=== PATIENT | female | born 1935 | race Caucasian/White ===

== ENCOUNTER → 2017-08-01 | Outpatient (CLI) | payer OTHER | LOC: FIMAGING 08:30 | PROVIDERS: ATTEND Internal Medicine Gastroenterology | DX: K21.9 Gastro-esophageal reflux disease without esophagitis (principal) | CPT/HCPCS: 78264; A9541 ==

== ENCOUNTER → 2018-03-31 | Outpatient (CLI) | payer OTHER | LOC: BMCIMAGING 07:35 | PROVIDERS: ATTEND Physician Assistant | DX: R68.81 Early satiety (principal); R14.0 Abdominal distension (gaseous); N28.1 Cyst of kidney, acquired ==

== ENCOUNTER → 2018-07-29 | Outpatient (CLI) | payer BC, OTHER | LOC: FIMAGING 19:14 | PROVIDERS: ATTEND Psychiatry & Neurology Neurology | DX: R26.9 Unspecified abnormalities of gait and mobility (principal) | CPT/HCPCS: 70551-PN ==

== ENCOUNTER 2018-08-16 13:48 | Observation (INO) | payer OTHER ==
--- NOTE | 2018-08-16 13:52 | EDPHY ---
H & P Time Seen by Provider: 08/16/18 13:51 HPI/ROS: CHIEF COMPLAINT: Feeling faint HISTORY OF PRESENT ILLNESS: Arrives by EMS for feeling lightheaded like she is going to pass out and unable to walk. She had her 1st episode on Friday 2 days ago sitting at home, had 30 min of feeling dizzy and lightheaded like she was going to pass out, remain seated and it went away. Was seen at urgent care yesterday. Today she was at home at 1:00 p.m., started feeling dizzy and lightheaded like she was going to pass out just after talking to 1 of her sons who lives in [place]. Did not have associated chest pain but a little bit of trouble "catching my breath" and no racing heart rate palpitations were skipping beats. Did not actually have syncope. No headache or visual symptoms. REVIEW OF SYSTEMS: Eye: no change in vision ENT: no sore throat Cardiac: HPI Pulmonary: HPI Abdomen: no vomiting, diarrhea, abdominal pain Musculoskeletal: Has some chronic left lower leg edema wearing a compression stocking, unchanged Skin: no rash Neuro: no headache Constitutional: no fever : no urinary symptoms A comprehensive 10 point review of systems is otherwise negative aside from elements mentioned in the history of present illness. PAST MEDICAL HISTORY: Negative, brain MRI dated 07/29/2018 shows microvascular gliosis, atrial fibrillation not on medication. 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 Social history: Lives independently General Appearance: Alert and conversant, cooperative. Eyes: No scleral icterus. ENT, Mouth: Normal mucous membranes. Respiratory: Normal respiratory effort, breath sounds equal, lungs are clear to auscultation. Cardiovascular: Regular rate and rhythm. Frequent extrasystoles. No murmur. Gastrointestinal: Abdomen is soft and non tender. Neurological: Alert, face symmetric, normal motor and sensory in extremities. Fluent speech, can lift each leg off the bed independently and has normal finger -to-nose bilaterally without pronator drift. Extraocular motion intact without nystagmus. Skin: Warm and dry, no rashes. Musculoskeletal: No peripheral edema. Psychiatric: Not agitated. Emergency Department course/MDM: Patient does not have symptoms suggestive of vertigo, more likely to be near syncope or orthostasis. Also differential includes but not limited to atrial fibrillation, malignant ventricular dysrhythmia, anemia, dehydration. 12-lead EKG interpreted by me; official reading is in computer system. My interpretation is sinus rhythm with supraventricular bigeminy and PACs. Plan for CBC chemistry troponin D-dimer chest x-ray, admission for monitoring. 1422: Troponin 0.11, discussed with Dr. Grant, admit for ACS, oral aspirin. Constitutional: Initial Vital Signs Temperature (C) 36.7 C 08/16/18 13:56 Heart Rate 83 08/16/18 13:56 Respiratory Rate 18 08/16/18 13:56 Blood Pressure 156/82 H 08/16/18 13:56 O2 Sat (%) 96 08/16/18 13:56 O2 Delivery Mode Room Air Allergies/Adverse Reactions: bacitracin [From Neosporin ([id number]-dsc-asptz)] Allergy (Verified 08/16/18 13:55) codeine Allergy (Verified 08/16/18 13:55) neomycin [From Neosporin (eyk-fir-lvixy)] Allergy (Verified 08/16/18 13:55) polymyxin B [From Neosporin (wff-yjc-qbeur)] Allergy (Verified 08/16/18 13:55) Home Medications: Medication Instructions Recorded Carboxymethylcellulose 1% [Refresh 1 drop EACHEYE Q4H PRN 08/16/18 Celluvisc (*)] Herbals/Supplements -Info Only 1 ea PO DAILY 08/16/18 Medical Decision Making - Diagnostics EKG Interpretation: 12-lead EKG interpreted by me; official reading is in computer system. My interpretation is sinus rhythm with supraventricular bigeminy, no acute ST changes, rate 79. Imaging Results: Imaging Impressions Chest X-Ray 08/16/18 14:03 Impression: 1. No active cardiopulmonary disease seen. 2. Hyperexpanded lungs suggestive of underlying COPD 3. Scoliosis Imaging: I viewed and interpreted images myself Differential Diagnosis: Differential diagnosis considered for near syncope including but not limited to ACS, vasovagal syncope, arrhythmia, dehydration, and blood loss. Consult/Admit Bed Type: [place] to consult 1513 - Data Points Laboratory Results: Laboratory Results 08/16/18 14:01 08/16/18 14:01 03/08/16/18 08/16/18 14:01 14:01 14:01 WBC 11.05 10^3/uL H 10^3/uL (3.80-9.50) RBC 5.04 10^6/uL 10^6/uL (4.18-5.33) Hgb 14.2 g/dL g/dL (12.6-16.3) Hct 42.9 % % (38.0-47.0) MCV 85.1 fL fL (81.5-99.8) MCH 28.2 pg pg (27.9-34.1) MCHC 33.1 g/dL g/dL (32.4-36.7) RDW 14.2 % % (11.5-15.2) Plt Count 277 10^3/uL 10^3/uL (150-400) MPV 10.5 fL fL (8.7-11.7) Neut % (Auto) 56.6 % % (39.3-74.2) Lymph % (Auto) 32.6 % % (15.0-45.0) [place] % (Auto) 8.8 % % (4.5-13.0) Eos % (Auto) 1.2 % % (0.6-7.6) Baso % (Auto) 0.5 % % (0.3-1.7) Nucleat RBC Rel Count 0.0 % % (0.0-0.2) Absolute Neuts (auto) 6.27 10^3/uL 10^3/uL (1.70-6.50) Absolute Lymphs (auto) 3.60 10^3/uL H 10^3/uL (1.00-3.00) Absolute Monos (auto) 0.97 10^3/uL H 10^3/uL (0.30-0.80) Absolute Eos (auto) 0.13 10^3/uL 10^3/uL (0.03-0.40) Absolute Basos (auto) 0.05 10^3/uL 10^3/uL (0.02-0.10) Absolute Nucleated RBC 0.00 10^3/uL 10^3/uL (0-0.01) Immature Gran % 0.3 % % (0.0-1.1) Immature Gran # 0.03 10^3/uL 10^3/uL (0.00-0.10) Sodium 136 mEq/L mEq/L (135-145) Potassium 4.0 mEq/L mEq/L (3.5-5.2) Chloride 101 mEq/L mEq/L (97-110) Carbon Dioxide 22 mEq/l mEq/l (22-31) Anion Gap 13 mEq/L mEq/L (6-14) BUN 18 mg/dL mg/dL (7-23) Creatinine 0.8 mg/dL mg/dL (0.6-1.0) Estimated GFR > 60 Glucose 103 mg/dL H mg/dL (70-100) Hemoglobin A1c Pending Estim Average Glucose Pending Calcium 10.1 mg/dL mg/dL (8.5-10.4) POC Troponin I 08/16/18 13:58 WBC RBC Hgb Hct MCV MCH MCHC RDW Plt Count MPV Neut % (Auto) Lymph % (Auto) [place] % (Auto) Eos % (Auto) Baso % (Auto) Nucleat RBC Rel Count Absolute Neuts (auto) Absolute Lymphs (auto) Absolute Monos (auto) Absolute Eos (auto) Absolute Basos (auto) Absolute Nucleated RBC Immature Gran % Immature Gran # Sodium Potassium Chloride Carbon Dioxide Anion Gap BUN Creatinine Estimated GFR Glucose Hemoglobin A1c Estim Average Glucose Calcium POC Troponin I 0.11 ng/mL H ng/mL (0.00-0.08) Medications Given: Discontinued Medications Aspirin (Aspirin) 324 mg PO EDNOW ONE Stop: 08/16/18 14:22 Last Admin: 08/16/18 14:27 Dose: 324 mg Point of Care Test Results: Chemistry 08/16/18 13:58 POC Troponin I 0.11 ng/mL H ng/mL (0.00-0.08) Departure - Departure Disposition: [facility] Inpatient Acute Clinical Impression: Near syncope, ACS (acute coronary syndrome) Condition: Good
[2018-08-16 14:07] LABS: PLATELET COUNT 277 10^3/uL (150-400)
[2018-08-16] MEDS ORDERED: ASPIRIN 81 MG CHEWABLE TAB PO ONE (14:21)
[2018-08-16] MEDS ORDERED: ONDANSETRON DISINTEGRATING 4 MG TAB PO PRN (14:58)
[2018-08-16] MEDS ORDERED: ONDANSETRON 4 MG/2 ML VIAL IVP PRN (14:58)
[2018-08-16] MEDS ORDERED: NITROGLYCERIN 0.4 MG BTL SL PRN (14:58)
[2018-08-16] MEDS ORDERED: ACETAMINOPHEN 325 MG TAB PO PRN (14:58)
[2018-08-16] MEDS ORDERED: CARBOXYMETHYLCELLULOSE 1% 0.4 ML DROPERETTE EACHEYE PRN (15:00)
--- NOTE | 2018-08-16 16:37 | CPEKG ---
Test Reason : OPEN Blood Pressure : / mmHG Vent. Rate : 079 BPM Atrial Rate : 142 BPM P-R Int : 167 ms QRS Dur : 077 ms QT Int : 416 ms P-R-T Axes : 063 051 065 degrees QTc Int : 477 ms Sinus rhythm Supraventricular bigeminy Probable left atrial enlargement Confirmed by Jeremy Londono ([id number]) on 08/16/2018 4:37:39 PM Referred By: Jeremy Londono Confirmed By:Jeremy Londono
--- NOTE | 2018-08-16 17:55 | PDGENHP ---
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 She notes that she has had some of these sxs in the recent past as well, and was diagnosed initially with ocular migraine for which she recently underwent a brain MRI and is seeing a neurologist in [place]. On Friday she had an episode of dizziness that lasted about 30 minutes, on Friday she was seen at urgent care for that, and they told her it was not a stroke or a heart attack and that she should f/u with her usual doctors. Today the sxs came back but this time they were so severe that she was unable to stand , and when she did try to stand she felt as if she would faint, and ultimately called 911 to come to the ER. This episode was associated with SOB as well, which she is not sure she had with the other episodes. On none of these episodes did she experience chest pain or palpitations. She has never had any heart issues that she knows of. She has not had swelling or pain in her legs. History Information - Allergies/Home Medication List Allergies/Adverse Reactions: bacitracin [From Neosporin (jbn-vdh-avyzm)] Allergy (Verified 08/16/18 13:55) codeine Allergy (Verified 08/16/18 13:55) neomycin [From Neosporin (olt-ald-nclhm)] Allergy (Verified 08/16/18 13:55) polymyxin B [From Neosporin (svs-uly-rkrot)] Allergy (Verified 08/16/18 13:55) Home Medications: Carboxymethylcellulose 1% [Refresh Celluvisc (*)] 1 drop EACHEYE Q4H PRN [Last Taken 08/15/18] Herbals/Supplements -Info Only 1 ea PO DAILY 08/16/18 [Last Taken 08/16/18] I have personally reviewed and updated: family history, medical history, social history, surgical history - Past Medical History cancer (DCIS), migraines - Surgical History Reports: cancer surgery (lumpectomy) Additional surgical history: knee replacement - Family History Positive for: CAD (dad with multiple MIs, at 81. Sister with AZ) Additional family history: Mother with RA. Sister with NHL, a fib, CVA - Social History Smoking Status: Never smoked Alcohol Use: Rarely Drug Use: None Additional social history: lives independently with a friend, prior to the last month was walking 1 mile every day Review of Systems Review of Systems: ROS: 10pt was reviewed & negative except for what was stated in HPI & below Physical Exam Physical Exam: Temp Pulse Resp BP Pulse Ox 36.6 C 75 18 145/75 H 95 08/16/18 15:07 08/16/18 15:07 08/16/18 15:07 08/16/18 15:07 08/16/18 15:07 Constitutional: no apparent distress, appears nourished Eyes: PERRL, anicteric sclera Ears, Nose, Mouth, Throat: moist mucous membranes, hearing normal Cardiovascular: regular rate and rhythym, no murmur, rub, or gallop, No edema Respiratory: no respiratory distress, no rales or rhonchi, clear to auscultation Gastrointestinal: normoactive bowel sounds, soft, non-tender abdomen, no palpable masses Genitourinary: no bladder tenderness Skin: warm, normal color Musculoskeletal: full muscle strength Neurologic: AAOx3 Psychiatric: interacting appropriately, not anxious, not encephalopathic Lab Data & Imaging Review 08/16/18 14:01 08/16/18 14:01 WBC 11.05 10^3/uL (3.80-9.50) H 08/16/18 14:01 RBC 5.04 10^6/uL (4.18-5.33) 08/16/18 14:01 Hgb 14.2 g/dL (12.6-16.3) 08/16/18 14:01 Hct 42.9 % (38.0-47.0) 08/16/18 14:01 MCV 85.1 fL (81.5-99.8) 08/16/18 14:01 MCH 28.2 pg (27.9-34.1) 08/16/18 14:01 MCHC 33.1 g/dL (32.4-36.7) 08/16/18 14:01 RDW 14.2 % (11.5-15.2) 08/16/18 14:01 Plt Count 277 10^3/uL (150-400) 08/16/18 14:01 MPV 10.5 fL (8.7-11.7) 08/16/18 14:01 Neut % (Auto) 56.6 % (39.3-74.2) 08/16/18 14:01 Lymph % (Auto) 32.6 % (15.0-45.0) 08/16/18 14:01 [place] % (Auto) 8.8 % (4.5-13.0) 08/16/18 14:01 Eos % (Auto) 1.2 % (0.6-7.6) 08/16/18 14:01 Baso % (Auto) 0.5 % (0.3-1.7) 08/16/18 14:01 Nucleat RBC Rel Count 0.0 % (0.0-0.2) 08/16/18 14:01 Absolute Neuts (auto) 6.27 10^3/uL (1.70-6.50) 08/16/18 14:01 Absolute Lymphs (auto) 3.60 10^3/uL (1.00-3.00) H 08/16/18 14:01 Absolute Monos (auto) 0.97 10^3/uL (0.30-0.80) H 08/16/18 14:01 Absolute Eos (auto) 0.13 10^3/uL (0.03-0.40) 08/16/18 14:01 Absolute Basos (auto) 0.05 10^3/uL (0.02-0.10) 08/16/18 14:01 Absolute Nucleated RBC 0.00 10^3/uL (0-0.01) 08/16/18 14:01 Immature Gran % 0.3 % (0.0-1.1) 08/16/18 14:01 Immature Gran # 0.03 10^3/uL (0.00-0.10) 08/16/18 14:01 Sodium 136 mEq/L (135-145) 08/16/18 14:01 Potassium 4.0 mEq/L (3.5-5.2) 08/16/18 14:01 Chloride 101 mEq/L (97-110) 08/16/18 14:01 Carbon Dioxide 22 mEq/l (22-31) 08/16/18 14:01 Anion Gap 13 mEq/L (6-14) 08/16/18 14:01 BUN 18 mg/dL (7-23) 08/16/18 14:01 Creatinine 0.8 mg/dL (0.6-1.0) 08/16/18 14:01 Estimated GFR > 60 08/16/18 14:01 Glucose 103 mg/dL (70-100) H 08/16/18 14:01 Calcium 10.1 mg/dL (8.5-10.4) 08/16/18 14:01 POC Troponin I 0.11 ng/mL (0.00-0.08) H 08/16/18 13:58 Visualized and Interpreted Chest x-ray results: Yes Chest X-Ray results: no infiltrate, other (hyperexpansion, ? copd) Visualized and Interpreted EKG results: Yes EKG Interpretation: Positive for: normal sinsus rhythm EKG additional interpertation: supraventricular bigeminy Assessment & Plan Assessment: ACS (acute coronary syndrome) (Acute) Near syncope (Acute) 82 yo F pw near syncope and sob found to have elevated troponin consistent with ACS # ACS: with atypical sxs but troponin elevation to 0.11 on arrival (this was a POC lab however, formal lab pending), ecg not clearly ischemic. Patient with minimal RF for CAD other than age and family hx. Plan to monitor on telemetry, serial troponin and serial ecg. Lipid panel and A1c ordered for further risk stratification. Cardiology consulted and presumably will evaluate patient in am. Will keep NPO after MN. # near syncope: in setting of above, will get echo in am for further evaluation for valvular disease etc # migraine: patient was previously on verapamil for this, followed by neurology , has ocular migraines only without headache # observation status Patient new to my care. Old records reviewed and summarized as above. Care plan reviewed with ER doctor and further hx obtained from patients friend present at bedside.
--- NOTE | 2018-08-16 18:13 | ASMTCMCOM ---
CM Note CM Note Notes: Pt presented to the ED from home for SOB, dizziness and near syncope over the last couple of days; pt seen at Urgent Care yesterday. Pt admitted for possible ACS and further cardiac monitoring/workup. Cardiology to consult; ECHO, serial troponins and EKGs ordered. DC needs TBD but anticipate pt to DC home Ind. Pt lives independently with a friend. CM to follow. Date Signed: 08/16/2018 06:12 PM Electronically Signed By:Anastasia Brink RN
[2018-08-17] MEDS ORDERED: ASPIRIN 325 MG TAB PO SCH (09:00)
--- NOTE | 2018-08-17 11:43 | GCON ---
[f rep st] CONSULTATION CARDIOLOGY CONSULTATION DATE OF CONSULTATION: 08/17/2018 INDICATION FOR CONSULTATION: Complaints of near-syncope and mildly elevated point of care troponin. HISTORY OF PRESENT ILLNESS: The patient is a pleasant 82-year-old, healthy, fit appearing woman, who has been experiencing episodes of intermittent unsteadiness that began in mid May 2018. She sta aguilar these episodes felt similar to how she felt in 2004 when she was formally diagnosed with ocular m igraines that resolved after verapamil therapy. She states she has been off verapamil for at least t he last 5 years. She states she was in her usual state of health until mid May when she began to develop these epi sodes of feeling "unbalanced." These episodes have intensified, and she states that she currently lozano s a chronic underlying degree of feeling unbalanced all the time. She has been seen by a neurologist in [place], Dr. Reaves. She did undergo an MRI of the brain earlier this year with no evidence o f mass or hemorrhagic or ischemic stroke. There were nonspecific white matter changes noted, as well as mild atrophy. She is scheduled to follow up with Neurology later this week. Over this past weekend, she had an episode on Friday night where she felt "out of control." This epi sode occurred while sitting while at her computer. She denied any associated palpitations, rapid hea rtbeat, chest pain, chest pressure, shortness of breath, nausea, vomiting, or diaphoresis. No associ ated syncope. She states these symptoms gradually resolved within 20 minutes on their own. She did take herself to urgent care. Her workup at urgent care was unremarkable, and she was discharged home . The patient states that yesterday she was sitting at her dining room table when she had an acute onse t of feeling near syncopal. She denied any change in position with the onset of these symptoms. She was sitting at the time of which they occurred. No associated palpitations, rapid heartbeat, chest pain, chest pressure, nausea, vomiting, or diaphoresis. She states she got up from the table and fel t worse. She called 9-1-1. She felt weak and "awful." Workup in the emergency department demonstra anselmo an ECG demonstrating sinus rhythm with isolated premature atrial contractions. Chest x-ray demon strated hyperinflated lungs with no acute cardiopulmonary abnormalities, and a mildly elevated point of care troponin of 0.11. Of note, repeat serum troponins were within normal limits at 0.022 and 0.0 17. Currently on the time of my exam, she is resting comfortably. She is in no acute distress. She stat es she has returned to her baseline level of mild sensation of being unbalanced. The patient states that prior to the onset of these events, she was exercising regularly, she would w alk daily. She was at a dance in mid May 2018 where she danced constantly for 3 hours. She also participates in Pilates and yoga. She has no history of diabetes, hypertension, or hyperlipidemia. She is a lifelong nonsmoker. She has no family history of premature coronary artery disease. Her f ather did from myocardial infarction at the age of 81. Sister had a myocardial infarction. She has another sister with non-Hodgkin's lymphoma and atrial fibrillation. PAST MEDICAL HISTORY: Notable for ocular migraines, DCIS status post lumpectomy, and knee replacemen t. MEDICATIONS ON ADMISSION: Include qody-hvs-shaofcn Refresh eye drops. ALLERGIES: Bacitracin, neomycin, and polymyxin B. SOCIAL HISTORY: She has been twice. She has 4 adopted children and 8 grandchildren. She l chalo with a friend whom she has known for the last 16 years. She is lifelong nonsmoker. She rarely drinks alcohol. Her last alcoholic beverage was in April 2018. She exercises regularly. PHYSICAL EXAMINATION: VITAL SIGNS: Blood pressure 140/60, heart rate 70, oxygen saturation 94% on r oom air, respiratory rate of 12. She is awake, alert, oriented, appropriate. No apparent distress. There is no evidence of JVP or carotid bruits. LUNGS: Clear to auscultation bilaterally. CARDIAC: S1, S2. Regular rate and rhythm. No murmurs, rubs, or gallops. ABDOMEN: Soft, nontender, nondis tended. There is no pulsatile mass or abdominal bruit. EXTREMITIES: Distal pulses are intact. She has no evidence of cyanosis, clubbing, or edema. DATA: Lab work demonstrates hemoglobin of 14.2, hematocrit 42.9, platelet count 227. Sodium of 136, potassium of 4.0, BUN of 18, creatinine 0.8, glucose 103. Serum troponin of 0.022, trending down to 0.017. Total cholesterol 189, triglyceride 61, HDL 62, LDL 115. Chest x-ray demonstrates no acute cardiopulmonary disease with hyperinflated lungs. ECG demonstrates sinus rhythm with no evidence of acute infarction or ischemia. Isolated PVCs. IMPRESSION: Near syncope. SUMMARY: The patient is a pleasant 82-year-old female with symptoms of near syncope, that over this past weekend in the setting of progressive sensation of feeling "unbalanced" for the last 2-1/2 month s. She is being followed by a neurologist, Dr. Page in [place]. She had also been seen by [facility] Th[facility] who told her symptoms were not due to positional vertigo. I do not think that she requires further cardiac risk stratification. She has no significant risk fa ctors for heart disease. Her ECG is unremarkable for ischemic changes, and her serum troponins are b oth within normal range. She is also physically active with no cardiac symptoms. Would recommend further cardiac workup with complete 2D echocardiogram. Note, telemetry monitoring h as demonstrated normal sinus rhythm with isolated premature atrial contractions. If echocardiogram a nd continue telemetry monitoring are unremarkable, would recommend outpatient 2 week ZIO patch monito r and followup. PLAN: 1. Discontinue n.p.o. Order. 2. No plan for cardiac risk stratification at this time. 3. Complete 2D echocardiogram. 4. Bilateral carotid Doppler. 5. Continue telemetry monitoring. 6. If above workup is unremarkable, recommend 2 week ZIO patch monitor and cardiology followup. /[id number]/MODL
[2018-08-17 12:02] VITALS: BP 115/50
--- NOTE | 2018-08-17 13:43 | ECHO ---
[email or web address] [address] [address] Main: [phone] Echocardiography Examination Transthoracic Name: MIR MOORE MR#: [id number] Study Date: 08/17/2018 Study Time: 11:19 AM Date of : 1935 Age: 82 year(s) Height: 165.1 cm (65 in.) Weight: 59.42 kg (131 lb.) BSA: 1.65 m2 Gender: Female Examination: Echo Contrast: Image Quality: Adequate Rhythm: Heart Rate: BP: / Indication: near syncope, elevated troponin, dizziness Procedure Staff Referring Physician: Fuse Cup Expander: Hillary Medel [facility] Reading Physician: Roberto Roque MD Requesting Provider: Indication: near syncope, elevated troponin, dizziness Measurements Chambers AV/MV Label Value Normal Value Label Value Normal Value IVSd, 2D 1.2 cm (0.6cm - 1.1cm) AV PGmax 14 mmHg LVDd, 2D 2.9 cm (3.9cm - 5.3cm) AV Vmax 1.87 m/s LVDs, 2D 1.8 cm (2.1cm - 4cm) GOPI (continuity eq. 3 cm2 LVEF, 2D 71 % (54% - 74%) Vmax) LVEF, BP 67 % (55% - 70%) MV A Vmax 0.96 m/s LVOT PGmax 13 mmHg MV DT 239 ms LVOT Vmax 1.77 m/s (0.7m/s - 1.1m/s) MV E' lateral 0.06 m/s LVOTd 2 cm (1.8cm - 2cm) MV E' mean 0.06 m/s LVPWd, 2D 1.1 cm MV E' septal 0.05 m/s RVDd, 2D 3 cm (1.9cm - 3.8cm) MV E Vmax 0.67 m/s TAPSE 2.4 cm MV E/A 0.7 LA Volume, BP 64 ml (22ml - 52ml) MV E/E' lateral 12.1 LADs, 2D 3.1 cm (2.7cm - 3.8cm) MV E/E' mean 12.18 LAESV index, BP 38.8 ml/m2 MV E/E' septal 14 (0.45 - 1.25) RA Area 15.4 cm2 TV/PV Additional Vessels Label Value Normal Value Label Value Normal Value RA Pressure 5 mmHg AoAsc 2.9 cm RVSP 28 mmHg AoRoot, MM 2.9 cm (2.2cm - 3.7cm) TR Pmax 23 mmHg TR Vmax 2.38 m/s Patient: MIR MOORE Study Date: 08/17/2018 Page 1 of 3 11:19 AM PV PGmax 5 mmHg PV Vmax, Caliper 1.13 m/s (0.6m/s - 0.9m/s) Conclusions Left Ventricle: Left ventricle is normal in size. Normal global systolic left ventricular function. EF range is estimated at 60 % - 65 %. Right Ventricle: Right ventricular systolic function is normal. Left Atrium: The left atrium is mildly dilated. Right Atrium: The right atrium is normal in size. Tricuspid Valve: Pulmonary artery pressure normal. Pericardium: A pericardial fat pad is present. Findings Left Ventricle: Left ventricle is normal in size. Normal global systolic left ventricular function. The ejection fraction, measured by Simpsons method, is 67 %. EF range is estimated at 60 % - 65 %. There is mild concentric left ventricular hypertrophy. There are no regional wall motion abnormalities. Grade I Diastolic Dysfunction. Right Ventricle: Normal size right ventricle. Right ventricular wall thickness is normal. Right ventricular systolic function is normal. Left Atrium: The left atrium is mildly dilated. Right Atrium: The right atrium is normal in size. Mitral Valve: Mitral valve appears structurally normal. Trivial mitral regurgitation. No mitral valve stenosis. Aortic Valve: Trivial aortic regurgitation is present. There is no aortic stenosis. The aortic valve is trileaflet. Tricuspid Valve: Tricuspid valve leaflets are normal in appearance and function. Mild tricuspid regurgitation. No tricuspid valve stenosis. Right Ventricular systolic pressure is measured at 28 mmHg. Pulmonary artery pressure normal. Pulmonic Valve: Pulmonic valve is poorly visualized. No pulmonic valve regurgitation is evident. Aorta: The aortic root size in M-mode measures 2.9 cm. The aortic root exhibits normal size. The ascending aorta measures 2.9 cm. Ascending aorta is normal in size. Aorta Measurements AoRoot, MM is 2.9 cm. IVC: The inferior vena cava is normal in size and course. Pericardium: Patient: MIR MOORE Study Date: 08/17/2018 Page 2 of 3 11:19 AM A pericardial fat pad is present. No pericardial effusion. Exam Details Procedure Ordered: Echo Procedure Status: Routine study Image Quality: Adequate Facility Location: Cardiac Echo 1 (No Signature Object) Patient: MIR MOORE Study Date: 08/17/2018 Page 3 of 3 11:19 AM [id number]
--- NOTE | 2018-08-17 14:21 | HOSPPROG ---
Hospitalist Progress Note Assessment/Plan: 82 yo F w "spells" uncertain etiology POC trop likely spurious seen by cardiology home today outpt monitor see dc summary Subjective: tele: no pauses, tachyarrhythmias Objective: Vital Signs Temp Pulse Resp BP Pulse Ox 36.8 C 61 17 115/50 L 93 08/17/18 12:00 08/17/18 12:00 08/17/18 12:00 08/17/18 12:00 08/17/18 12:00 08/16/18 08/17/18 08/18/18 05:59 05:59 05:59 Intake Total 600 Output Total 1000 1000 Balance -400 -1000 - Physical Exam Constitutional: no apparent distress, appears nourished Eyes: PERRL, anicteric sclera Ears, Nose, Mouth, Throat: moist mucous membranes, hearing normal Cardiovascular: regular rate and rhythym, no murmur, rub, or gallop Respiratory: no respiratory distress, no rales or rhonchi Gastrointestinal: normoactive bowel sounds, soft, non-tender abdomen Genitourinary: no bladder fullness, No pacheco in urethra Skin: warm Musculoskeletal: full muscle strength ICD10 Worksheet Patient Problems: Problems Problem Status Onset ACS (acute coronary syndrome) Acute Near syncope Acute
--- NOTE | 2018-08-17 18:05 | GDS ---
[f rep st] DISCHARGE SUMMARY DISCHARGE DIAGNOSES: 1. Spells with generalized weakness, perhaps presyncopal. 2. Possible ocular migraine. Please see admission history and physical by Dr. Handy Grant. The patient presented with spells. She had a nonischemic EKG. Her point of care troponin was slightly elevated point at 0.11. Her regular troponins were negative. She had a nonischemic EKG. There were no events seen on telemetry. She had echocardiogram that was largely normal showing diastolic dysfu nction. She had a recent MRI showing no acute events and no stroke. Her echo showed no significant valvular lesions. She was seen by Cardiology, recommended no further cardiac risk factor stratificat ion. We did recommend an outpatient monitor which is going to be set up. She had a carotid Doppler study showing some atherosclerosis in the carotid bulb without flow-limiting stenosis and antegrade f low in the vertebral arteries. She is discharged home on an unchanged medication regimen with outpat ient monitor. /[id number]/MODL
== END 2018-08-17 14:52 | disposition home or self-care (01) ==
LOC: EDUNIT# → INTOOBSV 14:21 → F2W 15:22
PROVIDERS: ADMIT Internal Medicine; ATTEND Internal Medicine
DX: R53.1 Weakness (principal); G43.109 Migraine with aura, not intractable, without status migrainosus; Z86.000 Personal history of in-situ neoplasm of breast
CPT/HCPCS: 71046; 93005; 93306; 93880; G0378; 84484-ER

== ENCOUNTER 2018-08-19 13:37 | Observation (INO) | payer OTHER ==
--- NOTE | 2018-08-19 13:52 | EDPHY ---
H & P Time Seen by Provider: 08/19/18 13:45 HPI/ROS: Chief complaint. Feels like passing out HPI. 82-year-old female presents with complaint that she felt off balance this morning and then felt like she could pass out. She had no chest pain or short shortness of breath. Her symptoms are better when she sitting worse with standing. Still present however with sitting. She has had recently increased frequency of ocular migraines and saw neurologist yesterday. Neurologist did not feel that her ocular migraines were cause of near syncope. Patient tells me no fever cough. No visual symptoms. No headache. She has no sense of vertigo or spinning. She was seen August 16 for same symptoms. She was admitted with an elevated troponin. Subsequent workup showed a normal echocardiogram other than diastolic dysfunction. Carotid ultrasound showed some calcium plaque but no rate limiting flow. She was discharged on August 17 with instructions to wear a monitor. She has not been able to crab picker the heart monitor yet. ROS 10 systems were reviewed and negative with the exception of the elements mentioned in the history of present illness Past Medical/Surgical History: Ocular migraines with visual disturbance, atrial fibrillation, cataract surgery , breast cancer with lumpectomy, right knee replacement Social History: Single, nonsmoker, no alcohol Smoking Status: Never smoked Physical Exam: General Appearance: Alert well-developed female mild distress vital signs are stable Eyes: Pupils equal and round no pallor or injection. ENT, Mouth: Mucous membranes are moist. Respiratory: There are no retractions, lungs are clear to auscultation. Cardiovascular: Regular rate and rhythm. Gastrointestinal: Abdomen is soft and nontender, no masses, bowel sounds normal. Neurological: Awake and alert, sensory and motor exams grossly normal. Skin: Warm and dry, no rashes. Musculoskeletal: Neck is supple nontender. Extremities symmetrical, full range of motion. Psychiatric: Patient is oriented X 3, there is no agitation. Constitutional: Initial Vital Signs Temperature (C) 36.6 C 08/19/18 13:38 Heart Rate 74 08/19/18 13:38 Respiratory Rate 18 08/19/18 13:38 Blood Pressure 131/72 H 08/19/18 13:38 O2 Sat (%) 96 08/19/18 13:38 O2 Delivery Mode Room Air Allergies/Adverse Reactions: bacitracin [From Neosporin ([id number])] Allergy (Verified 08/19/18 13:38) codeine Allergy (Verified 08/19/18 13:38) neomycin [From Neosporin ([id number])] Allergy (Verified 08/19/18 13:38) polymyxin B [From Neosporin ([id number])] Allergy (Verified 08/19/18 13:38) Home Medications: Medication Instructions Recorded Carboxymethylcellulose 1% [Refresh 1 drop EACHEYE Q4H PRN 08/16/18 Celluvisc (*)] Herbals/Supplements -Info Only 1 ea PO DAILY 08/16/18 Medical Decision Making - Diagnostics EKG Interpretation: EKG interpreted by me shows normal sinus rhythm normal interval and axis. QRS is normal there is no significant ST elevation or depression. No arrhythmia. The rate is 65 Imaging Results: Imaging Impressions Chest X-Ray 08/19/18 14:12 Impression: No acute cardiopulmonary process. Procedures: IV normal saline, monitor ED Course/Re-evaluation: Troponin is elevated at 0.22 Re-evaluation patient remained stable. Patient, her son, and I discussed imaging lab EKG findings. We discussed treatment plan including recommendation for admission. She expresses understanding and agreement I consulted discussed the case with Dr. Salvador, hospitalist, who agrees to the admission Differential Diagnosis: 82-year-old female with recurrent near syncopal symptoms. She has an elevated troponin though no chest pain or shortness of breath. I am concerned about acute coronary syndrome - Data Points Laboratory Results: Laboratory Results 08/19/18 13:55 08/19/18 13:55 08/19/18 08/19/18 08/19/18 14:02 14:01 13:55 WBC RBC Hgb Hct MCV MCH MCHC RDW Plt Count MPV Neut % (Auto) Lymph % (Auto) [place] % (Auto) Eos % (Auto) Baso % (Auto) Nucleat RBC Rel Count Absolute Neuts (auto) Absolute Lymphs (auto) Absolute Monos (auto) Absolute Eos (auto) Absolute Basos (auto) Absolute Nucleated RBC Immature Gran % Immature Gran # Sodium 138 mEq/L mEq/L (135-145) Potassium 4.0 mEq/L mEq/L (3.5-5.2) Chloride 104 mEq/L mEq/L (97-110) Carbon Dioxide 26 mEq/l mEq/l (22-31) Anion Gap 8 mEq/L mEq/L (6-14) BUN 16 mg/dL mg/dL (7-23) Creatinine 0.7 mg/dL mg/dL (0.6-1.0) Estimated GFR > 60 Glucose 82 mg/dL mg/dL (70-100) Calcium 10.4 mg/dL mg/dL (8.5-10.4) POC Troponin I 0.22 ng/mL H ng/mL (0.00-0.08) Troponin I Pending NT-Pro-B Natriuret Pep 469 pg/mL H pg/mL (0-450) 08/19/18 13:55 WBC 10.11 10^3/uL H 10^3/uL (3.80-9.50) RBC 4.89 10^6/uL 10^6/uL (4.18-5.33) Hgb 14.1 g/dL g/dL (12.6-16.3) Hct 43.2 % % (38.0-47.0) MCV 88.3 fL fL (81.5-99.8) MCH 28.8 pg pg (27.9-34.1) MCHC 32.6 g/dL g/dL (32.4-36.7) RDW 14.2 % % (11.5-15.2) Plt Count 266 10^3/uL 10^3/uL (150-400) MPV 9.9 fL fL (8.7-11.7) Neut % (Auto) 68.9 % % (39.3-74.2) Lymph % (Auto) 21.6 % % (15.0-45.0) [place] % (Auto) 7.8 % % (4.5-13.0) Eos % (Auto) 1.1 % % (0.6-7.6) Baso % (Auto) 0.4 % % (0.3-1.7) Nucleat RBC Rel Count 0.0 % % (0.0-0.2) Absolute Neuts (auto) 6.97 10^3/uL H 10^3/uL (1.70-6.50) Absolute Lymphs (auto) 2.18 10^3/uL 10^3/uL (1.00-3.00) Absolute Monos (auto) 0.79 10^3/uL 10^3/uL (0.30-0.80) Absolute Eos (auto) 0.11 10^3/uL 10^3/uL (0.03-0.40) Absolute Basos (auto) 0.04 10^3/uL 10^3/uL (0.02-0.10) Absolute Nucleated RBC 0.00 10^3/uL 10^3/uL (0-0.01) Immature Gran % 0.2 % % (0.0-1.1) Immature Gran # 0.02 10^3/uL 10^3/uL (0.00-0.10) Sodium Potassium Chloride Carbon Dioxide Anion Gap BUN Creatinine Estimated GFR Glucose Calcium POC Troponin I Troponin I NT-Pro-B Natriuret Pep Point of Care Test Results: Chemistry 08/19/18 14:02 POC Troponin I 0.22 ng/mL H ng/mL (0.00-0.08) Departure - Departure Disposition: [facility] Inpatient Acute Clinical Impression: Near syncope, Elevated troponin Condition: Good
--- NOTE | 2018-08-19 14:00 | CPEKG ---
Test Reason : OPEN Blood Pressure : / mmHG Vent. Rate : 065 BPM Atrial Rate : 065 BPM P-R Int : 168 ms QRS Dur : 074 ms QT Int : 417 ms P-R-T Axes : 064 -08 056 degrees QTc Int : 434 ms Sinus rhythm Atrial premature complex Probable left atrial enlargement Confirmed by Santos Gil [id number]) on 08/19/2018 2:00:03 PM Referred By: Santos Gil Confirmed By:Santos Gil
[2018-08-19 14:08] LABS: PLATELET COUNT 266 10^3/uL (150-400)
[2018-08-19] MEDS ORDERED: ACETAMINOPHEN 325 MG TAB PO PRN (14:46)
[2018-08-19] MEDS ORDERED: ONDANSETRON DISINTEGRATING 4 MG TAB PO PRN (14:46)
[2018-08-19] MEDS ORDERED: NITROGLYCERIN 0.4 MG BTL SL PRN (14:46)
--- NOTE | 2018-08-19 15:09 | PDGENHP ---
History and Physical - Chief Complaint Lightheadedness - History of Present Illness Sheri Oconnor is a 82 yo F with hx of ocular migraines who presents to [facility] for lightheadedness. She was recently admitted from 08/16-08/17 with the same complaint where she underwent TTE which was grossly normal except for diastolic dysfunction and carotid u/s which did not show significant flow limiting stenosis. She was seen by cardiology during that admission and heart monitor was recommended upon discharge which was not placed. She has also had neurological workup by her neurologist which included a brain MRI which was normal per patient. Despite these normal workups she has continued to experience episodes where she feels off balance and like she is going to pass out with associated lightheadedness. She denies associated chest pain, palpitations, headaches, f/c, nausea/vomiting, diarrhea constipation. She denies any visual changes like she does when she has ocular migraines. History Information - Allergies/Home Medication List Allergies/Adverse Reactions: bacitracin [From Neosporin ([id number])] Allergy (Verified 08/19/18 13:38) codeine Allergy (Verified 08/19/18 13:38) neomycin [From Neosporin ([id number])] Allergy (Verified 08/19/18 13:38) polymyxin B [From Neosporin ([id number])] Allergy (Verified 08/19/18 13:38) Home Medications: Carboxymethylcellulose 1% [Refresh Celluvisc (*)] 1 drop EACHEYE Q4H PRN [Last Taken 08/15/18] Herbals/Supplements -Info Only 1 ea PO DAILY 08/16/18 [Last Taken 08/16/18] Ascorbic Acid [C-1000] 1,000 mg PO DAILY 08/19/18 [Last Taken Unknown] Cholecalciferol Vit D3 [Vitamin D3 (*)] 1,000 units PO DAILY 08/19/18 [Last Taken Unknown] Cyanocobalamin [Vitamin B12 (*)] 1,000 mcg PO DAILY 08/19/18 [Last Taken Unknown ] I have personally reviewed and updated: family history, medical history, social history, surgical history - Past Medical History cancer (DCIS), migraines - Surgical History Reports: cancer surgery (lumpectomy) Additional surgical history: knee replacement - Family History Positive for: CAD (dad with multiple MIs, at 81. Sister with PA) Additional family history: Mother with RA. Sister with NHL, a fib, CVA - Social History Smoking Status: Never smoked Additional social history: lives independently with a friend, prior to the last month was walking 1 mile every day Review of Systems Review of Systems: ROS: 10pt was reviewed & negative except for what was stated in HPI & below Physical Exam Physical Exam: Temp Pulse Resp BP Pulse Ox 36.6 C 74 18 131/72 H 96 08/19/18 13:38 08/19/18 13:38 08/19/18 13:38 08/19/18 13:38 08/19/18 13:38 Constitutional: no apparent distress Eyes: PERRL Ears, Nose, Mouth, Throat: moist mucous membranes Cardiovascular: regular rate and rhythym Respiratory: no respiratory distress Gastrointestinal: soft, non-tender abdomen Genitourinary: No pacheco in urethra Skin: warm Musculoskeletal: full muscle strength Neurologic: AAOx3, CN II-XII Intact Psychiatric: interacting appropriately Lab Data & Imaging Review 08/19/18 13:55 08/19/18 13:55 WBC 10.11 10^3/uL (3.80-9.50) H 08/19/18 13:55 RBC 4.89 10^6/uL (4.18-5.33) 08/19/18 13:55 Hgb 14.1 g/dL (12.6-16.3) 08/19/18 13:55 Hct 43.2 % (38.0-47.0) 08/19/18 13:55 MCV 88.3 fL (81.5-99.8) 08/19/18 13:55 MCH 28.8 pg (27.9-34.1) 08/19/18 13:55 MCHC 32.6 g/dL (32.4-36.7) 08/19/18 13:55 RDW 14.2 % (11.5-15.2) 08/19/18 13:55 Plt Count 266 10^3/uL (150-400) 08/19/18 13:55 MPV 9.9 fL (8.7-11.7) 08/19/18 13:55 Neut % (Auto) 68.9 % (39.3-74.2) 08/19/18 13:55 Lymph % (Auto) 21.6 % (15.0-45.0) 08/19/18 13:55 [place] % (Auto) 7.8 % (4.5-13.0) 08/19/18 13:55 Eos % (Auto) 1.1 % (0.6-7.6) 08/19/18 13:55 Baso % (Auto) 0.4 % (0.3-1.7) 08/19/18 13:55 Nucleat RBC Rel Count 0.0 % (0.0-0.2) 08/19/18 13:55 Absolute Neuts (auto) 6.97 10^3/uL (1.70-6.50) H 08/19/18 13:55 Absolute Lymphs (auto) 2.18 10^3/uL (1.00-3.00) 08/19/18 13:55 Absolute Monos (auto) 0.79 10^3/uL (0.30-0.80) 08/19/18 13:55 Absolute Eos (auto) 0.11 10^3/uL (0.03-0.40) 08/19/18 13:55 Absolute Basos (auto) 0.04 10^3/uL (0.02-0.10) 08/19/18 13:55 Absolute Nucleated RBC 0.00 10^3/uL (0-0.01) 08/19/18 13:55 Immature Gran % 0.2 % (0.0-1.1) 08/19/18 13:55 Immature Gran # 0.02 10^3/uL (0.00-0.10) 08/19/18 13:55 Sodium 138 mEq/L (135-145) 08/19/18 13:55 Potassium 4.0 mEq/L (3.5-5.2) 08/19/18 13:55 Chloride 104 mEq/L (97-110) 08/19/18 13:55 Carbon Dioxide 26 mEq/l (22-31) 08/19/18 13:55 Anion Gap 8 mEq/L (6-14) 08/19/18 13:55 BUN 16 mg/dL (7-23) 08/19/18 13:55 Creatinine 0.7 mg/dL (0.6-1.0) 08/19/18 13:55 Estimated GFR > 60 08/19/18 13:55 Glucose 82 mg/dL (70-100) 08/19/18 13:55 Calcium 10.4 mg/dL (8.5-10.4) 08/19/18 13:55 POC Troponin I 0.22 ng/mL (0.00-0.08) H 08/19/18 14:02 NT-Pro-B Natriuret Pep 469 pg/mL (0-450) H 08/19/18 13:55 Assessment & Plan Assessment: Near syncope (Acute) - Recently admitted from 08/16-08/17 with same complaint underwent TTE, Carotid U/ S with no significant findings - Also has seen her OP Neurologist in [place], s/p MRI which is reportedly normal - EKG with no significant acute ischemic changes - POC Trop 0.22 on admission, serum troponin pending - Discussed case with Dr. Roque who saw patient on last admission, recommending treadmill stress test in the AM - If cardiac w/u is negative, consider neurology consult to further evaluate - PT/OT ordered - Will check orthostatic VS, does not appear dehydrated on exam or labs - Monitor on telemetry, pt was supposed to be set up with 2 week ZIO patch per cardiology consult on last admission Elevated Troponin - POC Trop 0.22 on admission - Initial Serum Trop negative, will trend x3 - Discussed with cardiology, recommending Treadmilll stress test in the AM as above Ocular Migraines - Not currently having a migraine - Follows with Neurology as outpatient - Tylenol PRN FEN: NPO for treadmill stress in AM, IVF PRN DVT PPx: Lovenox Code: FULL Dispo: Admit to Observation, pending above workup
[2018-08-19] MEDS ORDERED: CARBOXYMETHYLCELLULOSE 1% 0.4 ML DROPERETTE EACHEYE PRN (15:23)
[2018-08-20] MEDS ORDERED: ASPIRIN 325 MG TAB PO SCH (09:00)
[2018-08-20] MEDS ORDERED: ENOXAPARIN 40 MG/0.4 ML SYR SC SCH (09:00)
--- NOTE | 2018-08-20 09:39 | GCON ---
[f rep st] CONSULTATION CARDIOLOGY CONSULTATION DATE OF CONSULTATION: 08/20/2018 REASON FOR CONSULTATION: Near syncope. The patient is a pleasant 82-year-old female who was admitted earlier this week between August 16 and August 17 with identical complaints that she presented with last evening. She has been experiencing e pisodes intermittent what she describes as "unsteadiness that began in mid May 2018. Her workup during her hospitalization earlier this week included serial serum troponins which were ne gative. Complete 2-D echocardiogram which was unremarkable demonstrating normal left ventricular fun ction, normal wall motion. Telemetry demonstrated normal sinus rhythm with no evidence of arrhythmia s or pauses. Blood pressure was stable throughout the course of her hospitalization. She also underwent carotid ultrasound demonstrating no significant carotid artery disease. She was d ischarged home with plan to follow up with outpatient ZIO patch monitor and Cardiology followup, as w thuy as follow up with Neurology. The patient states that yesterday morning she woke up with her typical "unsteadiness" that progressed , and she felt profoundly and diffusely weak and near syncopal, [facility]. She denies any complaints of chest pain, chest pressure, palpitations, shortness of breath, nausea, v omiting, or diaphoresis. She has no exertional symptoms. No complaints of PND, orthopnea, or lower extremity edema. No complaints of fevers, chills, sweats, nausea, or vomiting. Of note, her point of care troponin was mildly elevated at 0.22. Of note, serum troponin done at the same time of point of care troponin was less than 0.012. Serial troponins have been negative x3. Telemetry this morning demonstrates sinus rhythm. Review of telemetry strips since admission demonst rates sinus rhythm to sinus bradycardia in the upper 50s with occasional PAC or PVC. PAST MEDICAL HISTORY: Ocular migraines, DCIS status post lumpectomy, knee replacement surgery. MEDICATIONS ON ADMISSION: Refresh eye drops. ALLERGIES: Bacitracin, neomycin, polymyxin B. SOCIAL HISTORY: She has been twice. She has 4 adopted children, 8 grandchildren. She live s with a friend whom she has known for the last 16 years. She is a lifelong nonsmoker. Rarely drink s alcohol. Up until the recent onset of symptoms, she has walked regularly. PHYSICAL EXAMINATION: VITAL SIGNS: Blood pressure 116/55, heart rate of 66, respiratory rate of 18, oxygen saturation 95% on room air, temperature 36.6. GENERAL: She is awake, alert, oriented, appro priate. No apparent distress. NECK: There is no evidence of JVP or carotid bruits. LUNGS: Clear to auscultation bilaterally. CARDIAC: S1, S2. Regular rate and rhythm. No murmurs, rubs, or ng ps. PMI is not displaced. ABDOMEN: Soft, nontender, nondistended. No pulsatile mass or abdominal bruit. EXTREMITIES: There is no evidence of cyanosis, clubbing or edema. DATA: White blood cell count 10.11, hemoglobin of 14.1, hematocrit 43.2, platelet count 266. Sodium 138, potassium 4.0, chloride 104, bicarb 26, BUN 16, creatinine 0.7, glucose 82. Troponin less than 0.012 x3. Lipid profile demonstrates total cholesterol of 189, triglycerides of 61, HDL of 62, and LDL of 115. ECG demonstrates sinus rhythm with normal intervals and normal axis. Chest x-ray demonstrates no acute cardiopulmonary process. Echocardiogram from August 17, 2018, demonstrates normal left ventricular function with no wall motion abnormality with LVEF 60% to 65%. No significant valvular disease. Carotid Doppler from August 17, 2018, demonstrates no evidence of flow-limiting carotid stenosis. IMPRESSION: 1. Generalized weakness. 2. Near-syncope. 3. Unsteadiness. SUMMARY: The patient is a pleasant 82-year-old female with ongoing complaints of significant debilit ating unsteadiness coupled with episodes of near-syncope associated with profound fatigue. Cardiac w orkup to date has included normal echocardiogram, carotid Doppler with no flow-limiting disease, and telemetry demonstrating sinus rhythm with no evidence of bradyarrhythmia or pauses or sick sinus synd kendrick. Of note, point of care troponins have been elevated on admission. Serum troponins have all be en negative. Would recommend exercise treadmill stress test to assess for chronotropic incompetence, as well as as sess for underlying coronary disease. If workup is unremarkable, will plan for a ZIO patch to be placed prior to her discharge today and fo llow up with Cardiology. Would also recommend evaluation with ENT, concerned her symptoms may represent middle ear issues revo lving around the endolymphatic fluid. She may benefit from Barney or Hallpike maneuver. PLAN: 1. Exercise treadmill stress test. 2. ZIO patch monitor to be placed prior to discharge. 3. Outpatient cardiology followup. /[id number]/MODL
--- NOTE | 2018-08-20 11:06 | ASMTCMCOM ---
CM Note CM Note Notes: Pt is a 82 y/o female admitted for near syncope and elevated troponin. Therapies have been ordered and awaiting recommendations. Needs are TBD at this time. CM to follow. Plan: TBD Date Signed: 08/20/2018 11:05 AM Electronically Signed By:DAMIEN Marcano
--- NOTE | 2018-08-20 11:54 | PDCARPN ---
Cardiology Progress Note Assessment/Plan: Assessment: 1. Weakness 2. Near syncope Plan: -DC ETT due to pts inabiity to walk on treadill -Arrange for Lexiscan Nuclear Stress Test 08/20/18 11:53 Subjective: Mrs. Oconnor notes new onset of exacerbation of her unsteadyness and feels like she is going to pass out. She informs me these symptoms began while at rest, sitting in bed without change in position. She states she is too weak and unsteady to walk on treadmill. Reviewed/Discussed With: hospitalist, multidisciplinary team Objective: Vital Signs (8 Hrs) Temp Pulse Resp BP Pulse Ox 08/20/18 08:00 36.6 C 66 18 116/55 L 95 08/20/18 04:00 36.9 C 70 18 128/65 H 94 Intake/Output (24 Hrs) 08/19/18 08/20/18 08/21/18 05:59 05:59 05:59 Intake Total 500 Balance 500 Intake: Oral (ml) 500 Other: Weight 59.3 kg Number of Voids Toilet 1 Result Diagrams: 08/19/18 13:55 08/19/18 13:55 Cardiac Labs: Cardiac Lab Results (72 Hrs) 08/20/18 08/19/18 03:12 21:26 Troponin I < 0.012 < 0.012 - Physical Exam Constitutional: WDWN Neurologic: AAOx3, CN II-XII grossly intact Psychiatric: cooperative, interactive, following commands ICD10 Worksheet Patient Problems: Problems Problem Status Onset Elevated troponin Acute Near syncope Acute ACS (acute coronary syndrome) Acute
[2018-08-20] MEDS ORDERED: REGADENOSON 0.4 MG/5 ML SYR IVP ONE (13:51)
--- NOTE | 2018-08-20 14:44 | CPR ---
[f rep st] NONINVASIVE CARDIAC PROCEDURE REPORT REPORT TITLE: Lexiscan Injection of Lexiscan MPI Study SUPERVISING DIRECTOR SUMMER SESSIONS: Dr. Roberto Roque. INDICATION FOR PROCEDURE: Chest pain shortness of breath, lightheadedness, unable to run on treadmil l. PRE: After obtaining informed consent, ensuring patient's n.p.o. status of caffeine for greater than 12 hours, patient was placed on electrocardiogram. Initial EKG shows sinus rhythm, left axis deviat ion, premature atrial contraction. Patient denies of chest pain, pressure or symptoms suggesting of ischemia. She reports no symptoms. Initial blood pressure 128/ , O2 saturation 95% on room air. INJECTION: Patient was given Lexiscan slow IV push, followed by nuclear isotope; post injection ashlyn ent noted to have increased heart rate up to 95 beats per minute. She did report some mild shortness of breath, EKG showing more frequent PACs but no other significant EKG changes. Blood pressure bret ined stable at 122/66, saturation 96%. Within 5 minutes heart rate dropped back down to 89 beats per minute, remaining in sinus rhythm with no other malignant arrhythmias or pauses. No significant EKG changes, blood pressure of 126/66, saturation 95%, patient reporting symptoms of shortness of breath dissipated. IMPRESSION: 82-year-old female being evaluated for cardiac ischemia, undergoing Lexiscan MPI study f or further evaluation. Reporting mild shortness of breath with injection which dissipated within 5 m inutes. Vital signs are stable. Noted more frequent PACs post injection which dissipated within 5 m inutes, besides that, no other significant EKG changes. Currently her vital signs are stable. She i s asymptomatic. She will finish post-stress imaging in Nuclear Medicine at this time. /[id number]/MODL
[2018-08-20 14:59] VITALS: BP 128/57
--- NOTE | 2018-08-20 17:22 | PDDCSUM ---
Discharge Summary Discharge Summary: Date of Admission: 08/19/2018 Date of Discharge: 08/20/2018 Consultants: cardiology Studies: Lexiscan stress with MPI Discharge Diagnoses: 1. Episodic "spells" 2. Elevated POC troponin with negative serum troponins and normal stress test 3. Ocular migraines Brief Hospital Course: 82yo relatively healthy F with history of ocular migraines presented with episodic, vague balance issues. She has much difficulty describing these; she feels like she is going to pass out, is short of breath, and feels like she has a "bubble" in her chest. She denies vertigo. She just had an observation hospital stay here for same issue. She had TTE, carotid ultrasound with no significant findings. She also recently saw a neurologist who ordered a brain MRI that was reportedly unremarkable. This admission, a POC troponin was mildly elevated but serial serum troponins were negative. She underwent a lexiscan stress test that was normal. Orthostatics were negative. Telemetry was without tachy- or bradyarrhythmias or pauses. Cardiology saw the patient in consultation and have set her up with a Zio patch. PT and OT cleared her for discharge home. I did write a prescription for vestibular rehab. I also recommend that her PCP refer her to ENT. Overall, it is a bit unclear what is causing her symptoms but it is likely an inner ear pathology vs vestibular migraine. Medications: Please refer to EMR for complete list. No changes this admission. Follow Up Plan: 1. Recommend outpatient referral to ENT 2. Cardiology follow up after Zio patch Physical Exam: Vitals and telemetry reviewed, no significant arrhytmias. Alert and oriented, rrr without murmur, lungs clear, abdomen soft, no leg edema.
--- NOTE | 2018-08-21 09:00 | ASMTCMCOM ---
CM Note CM Note Notes: Pt discharged from the hospital yesterday. Therapies reported that pt does not have any needs. Plan: Independent Date Signed: 08/21/2018 08:59 AM Electronically Signed By:DAMIEN Marcano
--- NOTE | 2018-08-24 10:09 | CPEKG ---
Test Reason : OPEN Blood Pressure : / mmHG Vent. Rate : 062 BPM Atrial Rate : 062 BPM P-R Int : 185 ms QRS Dur : 073 ms QT Int : 433 ms P-R-T Axes : 070 -03 054 degrees QTc Int : 440 ms Sinus rhythm Confirmed by Sarah Covarrubias ([id number]) on 08/24/2018 10:08:31 AM Referred By: Godwin Salvador Confirmed By:Sarah Covarrubias
== END 2018-08-20 18:43 | disposition home or self-care (01) ==
LOC: INTOOBSV 14:40 → F2W 15:33
PROVIDERS: ADMIT Internal Medicine; ATTEND Internal Medicine
DX: R55 Syncope and collapse (principal); R79.89 Other specified abnormal findings of blood chemistry; G43.109 Migraine with aura, not intractable, without status migrainosus; R53.1 Weakness; R26.81 Unsteadiness on feet; I48.91 Unspecified atrial fibrillation; Z85.3 Personal history of malignant neoplasm of breast; Z82.49 Family history of ischemic heart disease and other diseases of the circulatory system; Z96.651 Presence of right artificial knee joint
CPT/HCPCS: 71045; 78452; 93005; 93017; 97161; 97166; 99285; A9500; G0378; J2785; 84484-ER

== ENCOUNTER 2018-08-24 10:58 | Emergency (ER) | payer OTHER ==
[2018-08-24] MEDS ORDERED: NS 500 ML IV ONE (11:08)
[2018-08-24 11:36] LABS: PLATELET COUNT 298 10^3/uL (150-400)
--- NOTE | 2018-08-24 11:56 | EDPHY ---
H & P Stated Complaint: Dizzy, light headed, feels like she may faint Time Seen by Provider: 08/24/18 11:08 HPI/ROS: CHIEF COMPLAINT: Recurrent dizziness HISTORY OF PRESENT ILLNESS: 82-year-old female presents with recurrent dizziness. Onset of dizziness at 10:00 a.m. The dizziness lasted approximately 1 hr and she now feels better. Recent history of recurrent dizziness, with extensive workup including echocardiogram, nuclear stress test, carotid ultrasound and 2 admissions. She saw a neurologist as an outpatient, who thinks the dizziness is secondary to peripheral vertigo. The patient had an appointment with ENT this morning, but she canceled the appointment. She currently has a [facility] cardiac nurse in place. Dizziness has resolved. No associated symptoms. REVIEW OF SYSTEMS: complete 10 point ROS reviewed and is negative except for the noted elements in the HPI - Personal History Current Tetanus/Diphtheria Vaccine: Yes Current Tetanus Diphtheria and Acellular Pertussis (TDAP): Yes Tetanus Vaccine Date: < 10 years - Medical/Surgical History Hx Asthma: No Hx Chronic Respiratory Disease: No Hx Diabetes: No Hx Cardiac Disease: No Hx Renal Disease: No Hx Cirrhosis: No Hx Alcoholism: No Hx HIV/AIDS: No Hx Splenectomy or Spleen Trauma: No Other PMH: occular migraines with visual disturbances, cataract surgery, Breast cancer with L side lumpectomy, R knee replacement - Social History Smoking Status: Never smoked - Physical Exam Exam: General Appearance: Alert, pleasant Eyes: Pupils equal and round, no conjunctival pallor, no nystagmus ENT, Mouth: Mucous membranes moist Neck: Normal inspection Respiratory: Lungs are clear to auscultation Cardiovascular: Regular rate and rhythm Gastrointestinal: Abdomen is soft and nontender Neurological: Alert, oriented x3, cranial nerves II through XII intact, motor 5 /5, sensory grossly intact Skin: Warm and dry Extremities: Normal inspection Psychiatric: Mood and affect normal Constitutional: Initial Vital Signs Temperature (C) 36.6 C 08/24/18 11:00 Heart Rate 71 08/24/18 11:00 Respiratory Rate 14 08/24/18 11:00 Blood Pressure 119/72 08/24/18 11:00 O2 Sat (%) 98 08/24/18 11:00 O2 Delivery Mode Room Air Allergies/Adverse Reactions: bacitracin [From Neosporin ([id number])] Allergy (Verified 08/19/18 13:38) codeine Allergy (Verified 08/19/18 13:38) neomycin [From Neosporin ([id number])] Allergy (Verified 08/19/18 13:38) polymyxin B [From Neosporin ([id number])] Allergy (Verified 08/19/18 13:38) Home Medications: Medication Instructions Recorded Carboxymethylcellulose 1% [Refresh 1 drop EACHEYE Q4H PRN 08/16/18 Celluvisc (*)] Herbals/Supplements -Info Only 1 ea PO DAILY 08/16/18 Ascorbic Acid [C-1000] 1,000 mg PO DAILY 08/19/18 Cholecalciferol Vit D3 [Vitamin D3 1,000 units PO DAILY 08/19/18 (*)] Cyanocobalamin [Vitamin B12 (*)] 1,000 mcg PO DAILY 08/19/18 Medical Decision Making - Diagnostics EKG Interpretation: EKG interpreted by me reveals normal sinus rhythm, rate 66, abnormal R-wave progression, minimal ST segment depression in the lateral leads. ED Course/Re-evaluation: This patient presents with recurrent dizziness. Physical exam is normal and EKG reveals no evidence of ischemia or dysrhythmia. [facility] contacted to review ZIO monitor. Unable to review ZIO monitor, pt needs to send it in for analysis. Pt informed. Pt has multiple c/o and concerns about living alone. Seem quite anxious in current living situation and unhappy about inability to drive. d/w pt at length options. Has good family support, will continue to discuss/review options. Old medical record reviewed. Nuclear stress test on 08/20/2018 was normal. The patient's troponin is slightly elevated today. In review of her prior POC troponins, all POC troponins have been elevated, with subsequent normal laboratory troponins. I doubt ACS, especially in light of normal nuclear stress test. I do not feel that repeat testing is indicated. Pt able to ambulate with a steady gait in the ED. I feel that she is safe/stable for d/c. Will f/u with ENT and with PCP. Differential Diagnosis: includes though not limited to CVA/TIA, dysrhythmia, ACS, hypoglycemia, orthostatic hypotension, severe anemia, dehydration. - Data Points Laboratory Results: Laboratory Results 08/24/18 11:25 08/24/18 11:25 Medications Given: Discontinued Medications Acetaminophen (Tylenol) 650 mg PO EDNOW ONE Stop: 08/24/18 13:36 Last Admin: 08/24/18 13:51 Dose: 650 mg Sodium Chloride (Ns) 500 mls @ 1,000 mls/hr IV EDNOW ONE PRN Reason: Protocol Stop: 08/24/18 11:37 Last Admin: 08/24/18 11:30 Dose: 500 mls Point of Care Test Results: Chemistry 08/24/18 13:10 POC Troponin I 0.11 ng/mL H ng/mL (0.00-0.08) Departure - Departure Disposition: Home, Routine, Self-Care Clinical Impression: Dizziness Condition: Good Instructions: Dizziness (ED) Additional Instructions: Call ENT to make an appointment. Referrals: Lacey Cook MD [Primary Care Provider] - As per Instructions
[2018-08-24] MEDS ORDERED: ACETAMINOPHEN 325 MG TAB PO ONE (13:35)
[2018-08-24 13:54] VITALS: BP 115/74
--- NOTE | 2018-08-31 08:24 | CPEKG ---
Test Reason : OPEN Blood Pressure : / mmHG Vent. Rate : 066 BPM Atrial Rate : 066 BPM P-R Int : 148 ms QRS Dur : 077 ms QT Int : 409 ms P-R-T Axes : -20 -21 060 degrees QTc Int : 429 ms Sinus rhythm Borderline left axis deviation Abnormal R-wave progression, early transition Minimal ST depression, lateral leads Confirmed by Sarah Covarrubisa ([id number]) on 08/31/2018 8:24:13 AM Referred By: Sarah Covarrubias Confirmed By:Sarah Covarrubias
== END 2018-08-24 13:57 | disposition home or self-care (01) ==
DX: R42 Dizziness and giddiness (principal); Z86.69 Personal history of other diseases of the nervous system and sense organs
CPT/HCPCS: 84484-ER